=== PATIENT | male | born 1970 | race Caucasian/White ===

== ENCOUNTER 2017-02-19 19:27 | Inpatient (IN) | payer OTHER ==
[~2017-02-19] VITALS: Ht 165.1 cm; Wt 69.2 kg
--- NOTE | ~2017-02-19 | CT16 ---
[facility] A Service of [facility] & [facility] RADIOLOGY TEXT RESULTS PATIENT: RAMÓN SPAIN [facility] 574-01 : [birth year] UNIT #: [id number] AGE: [address]: ALEX LENNON V SEX: M ORDER DR: [id number] [facility] [address] [place], [place] [address] [id number] I MR#: [id number] Acc #: [id number] NAME: RAMÓN SPAIN. : 1970 SEX: M STUDY DATE/TIME: 02/19/2017 21:53 [facility]IT[facility] ROOM: [facility] STUDY DESCRIPTION: CT Angio Chest for PE Attending Physician: Alex Lennon M.D. Ordering Physician: Dominic Fox M.D. Primary Care Physician: Primary Care Physician No MEDICAL IMAGING REPORT This report is preliminary unless electronic signature is present EXAM Chest CT with contrast with CT angiography HISTORY Chest pain and shortness breath for the past 4 days. Pain is toward the right. TECHNIQUE Axial images were obtained through chest with contrast. 100 mL of Isovue was used. CT angiography was performed with thick sliding MIPs in the sagittal and coronal projections. This CT exam was performed with one or more of the following radiation dose reduction techniques: automatic control, adjustment of mA and/or kV according to patient size, and iterative reconstruction. FINDINGS Chest images at mediastinal window show no pulmonary artery filling defects. There is no evidence of mediastinal or hilar adenopathy and there is no evidence of pleural or pericardial fluid. The CT angiographic images also show no evidence of emboli. Lung window imaging shows a ground-glass peripheral density in the left mid lung field laterally. It is unchanged from the previous examination. Malignancy is not excluded. It could also represent chronic scarring or an active process such as a small pneumonia. There is a larger wedge-shaped area of dense consolidation in the right lower lobe posteriorly. This infiltrate is new since the previous scan several days ago. It most likely represents pneumonia. Given its peripheral wedge-shaped it could potentially represent an area of pulmonary infarction but there are no clots seen in the pulmonary arteries to this area. There is mild patchy infiltrate at both lung bases that likely represents atelectasis secondary to splinting. [facility] A Service of [facility] & [facility] RADIOLOGY TEXT RESULTS PATIENT: RAMÓN SPAIN [facility] 574-01 : [birth year] UNIT #: [id number] AGE: [address]: ALEX LENNON V SEX: M ORDER DR: IMPRESSION 1. No evidence of pulmonary embolism. 2. There is a new right lower lobe infiltrate posterolaterally. It most likely represents pneumonia. It is wedge shaped and peripheral and could potentially represent a pulmonary infarct but the area was completely clear several days ago and there are no blood clots in the pulmonary arteries to this area. 3. There is also a ground-glass rounded focus in the left upper lobe laterally in the mid lung field that is unchanged from the previous examination. It is nonspecific and could reflect either an infectious process or even a malignant process. This should be followed subsequently to make sure it is not slowly enlarging over time. Dictated by... Tod Knight M.D. THIS IS AN ELECTRONICALLY VERIFIED REPORT Tod Knight M.D. at 02/22/2017 7:14 AM BRIAN/pam TD: 02/21/2017 00:58 JOB #: [id number] MEDICAL IMAGING REPORT Page 1 of 1 COPY
--- NOTE | ~2017-02-19 | CO ---
Unit #: [id number] #: [id number] Patient: RAMÓN SPAIN [id number] [address] [place], [place] [address] [id number] I MR#: [id number] NAME: RAMÓN SPAIN. ROOM: 574 Age: 46 Sex: M Admission Date: 02/19/2017 : 1970 Attending Physician: Ben Sims M.D. Primary Care Physician: No Primary Care Physician CONSULTATION REPORT REASON FOR CONSULTATION Pulmonary infiltrate. CHIEF COMPLAINT Cough, shortness of breath. 46-year-old male with past medical history of IV heroin abuse. Patient currently uses IV heroin regularly. Last use was on Wednesday. History of polysubstance, methamphetamine and tobacco use. Smoked half to one pack per day. Presents with a complaint of shortness of breath. On CT chest, was found to have an infiltrate and no pulmonary embolism. I am seeing him at the bedside. Denies any headache, blurry vision. No chest pain. REVIEW OF SYSTEMS Positive for pallor. No edema, no cyanosis, no jaundice. PAST MEDICAL HISTORY As described above. SURGICAL HISTORY 1. Shoulder surgery. 2. Right hand surgery. SOCIAL HISTORY Smokes one pack per day. Uses IV heroin on a daily basis and methamphetamine. 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 PHYSICAL EXAMINATION VITAL SIGNS: Temperature 98, pulse 87, respirations 12, blood pressure 130/70. NEUROLOGICAL: Awake, alert, oriented. No neuro deficit. HEENT: PERRLA. NECK: Supple. No JVD. CHEST: Bilateral air entry, bilateral mild rhonchi. GI: Nontender, soft. Bowel sounds positive. EXTREMITIES: No edema. SKIN: No rashes, no ulcers. LYMPHATIC: No lymphadenopathy. DIAGNOSTIC STUDIES Labs and imaging has been reviewed. ASSESSMENT AND PLAN 1. Pulmonary infiltrate, most likely peptic emboli and infarct. Unit #: [id number] #: [id number] Patient: RAMÓN SPAIN 2. IV drug use. 3. Gram-positive bacteremia. Rule out endocarditis. 4. Very likely underlying COPD. 5. IV antibiotics per infectious disease. 6. Transthoracic echo showed thickening of anterior tricuspid leaflet representing vegetation. GIFTY is recommended. Continue antibiotics per infectious disease, bronchodilator, oxygen. 7. Substance abuse. Counseling has been done. Patient will be followed. Please see orders for detailed plan. Dictated by... Ben Cormier/teresa TD: 02/22/2017 06:01 JOB #: [id number] CONSULTATION REPORT Page 1 of 1 X Jeannine Pierce MD X CONSULTATION REPORT
--- NOTE | ~2017-02-19 | EKG ---
PATIENT: RAMÓN SPAIN UNIT #: [id number] Ventricular Rate: 78 BPM Atrial Rate: 78 BPM P-R Interval: 128 ms QRS Duration: 94 ms Q-T Interval: 380 ms QTC Calculation(Bezet): 433 ms P [place]: 21 degrees Calculated R [place]: 49 degrees Calculated T [place]: 51 degrees Diagnosis Line: Normal sinus rhythm Diagnosis Line: Normal ECG Diagnosis Line: When compared with ECG of 19-FEB-2017 19:32, Diagnosis Line: (unconfirmed) Diagnosis Line: Vent. rate has decreased BY 38 BPM Diagnosis Line: Confirmed by SINDY GONZALEZ MD ([id number]) on 02/22/2017 Diagnosis Line: 7:55:22 PM INTERPRETING MD: LISA SAHNI
--- NOTE | ~2017-02-19 | DS ---
Unit #: [id number] #: [id number] Patient: RAMÓN SPAIN [id number] [address] [place], [place] [address] [id number] I MR#: [id number] NAME: RAMÓN SPAIN ROOM: 574 Age: 46 Sex: M Admission Date: 02/19/2017 : 1970 Discharge Date: 02/22/2017 Attending Physician: Ben Sims M.D. Primary Care Physician: No Primary Care Physician DISCHARGE SUMMARY DATE OF DISCHARGE Actually patient left against medical advice on 02/22/2017. DISCHARGE DIAGNOSES 1. Pneumonia with right lower lobe infiltrate. 2. Gram-positive bacteremia with methicillin-resistant Staphylococcus aureus. 3. Intravenous heroin abuse. 4. Polysubstance abuse. 5. Ill-defined nodular opacity in left upper lobe. HOSPITAL COURSE The patient is a 46-year-old man with a past medical history significant for IV heroin abuse and polysubstance abuse. The patient initially arrived to the emergency room on February 17, 2017 and was diagnosed with sepsis and pneumonia. The patient was advised to be admitted. The patient refused admission and left against medical advice. The patient returned to the emergency room on 02/19/2017 with continued and worsening symptoms of shortness of breath and cough. He was found to have a lactic acid of 2.3. He underwent a CT scan which showed no pulmonary embolism but did show a right lower lobe infiltrate and a ground-glass opacity in the left upper lobe and the patient's blood cultures from February 17 grew methicillin-resistant Staph aureus. The patient was admitted and started on IV vancomycin and IV Zosyn. During his admission infectious disease consultation was obtained and it was recommended to continue IV vancomycin. The Zosyn was discontinued. Pulmonary consultation was also obtained and recommended continued IV antibiotic. The patient had a transthoracic echocardiogram that demonstrated thickening of the anterior tricuspid leaflet representing a vegetation. A transesophageal echocardiogram was recommended. A psychiatry consultation was also obtained for his substance abuse. The patient had reported using IV heroin and methamphetamine. The patient was started on opioid withdrawal medications and the patient left against medical advice on 02/22 early in the morning. The opioid withdrawal medication which include Neurontin 300 mg three times a day, Vistaril 25 mg three times a day and trazodone 50 mg at bedtime along with Requip 1 mg at bedtime to treat withdrawal symptoms. Dictated by... Ben Sims M.D. Unit #: [id number] #: [id number] Patient: GRABIELRAMÓNCAMILO CRISOSTOMO/jim TD: 03/03/2017 17:55 JOB #: [id number] DISCHARGE SUMMARY Page 1 of 1 X X DISCHARGE SUMMARY
--- NOTE | ~2017-02-19 | HP ---
Unit #: [id number] #: [id number] Patient: RAMÓN SPAIN [id number] [address] [place], [place] [address] [id number] I MR#: [id number] NAME: RAMÓN SPAIN. ROOM: 574 Age: 46 Sex: M Admission Date: 02/19/2017 : 1970 Attending Physician: Ben Sims M.D. Primary Care Physician: No Primary Care Physician HISTORY AND PHYSICAL CHIEF COMPLAINT Shortness of breath, chest pain, cough. DISCUSSION This is a 46-year-old gentleman with a past medical history of IV heroin use, polysubstance abuse, methamphetamine, tobacco abuse. He presented to the emergency room here on February 17, 2017. At that time, he was diagnosed with sepsis, pneumonia. He was advised admission. He refused. He left against medical advice. He went home. He is coming back today with worsening symptoms, shortness of breath, chest pain with deep breath, dry cough. No history of dry cough. On workup today, he was found to be elevated lactic acid of 2.3. He underwent repeat CT scan, which shows no pulmonary embolism but showed new right lower lobe infiltrate. There is a ground-glass opacity in the left upper lobe and his blood cultures from February 17 growing gram-positive bacteremia clusters in the blood and now he has agreed for admission. He is feeling very bad, tired, fatigued but denies fever. Says he is hurting when he takes a deep breath. Chest pain, shortness of breath, dry cough. PAST MEDICAL HISTORY Denies any medical history in the past. PAST SURGICAL HISTORY 1. History of right shoulder surgery. 2. Right hand surgery. SOCIAL HISTORY He smoked one pack daily. Denies alcohol use. IV heroin on daily basis and methamphetamine. FAMILY HISTORY Mother with coronary artery disease. REVIEW OF SYSTEMS Negative except for history of present illness. PHYSICAL EXAMINATION GENERAL: A 46-year-old gentleman lying in the bed comfortably, currently not in any distress. He is alert, awake, oriented x3. VITAL SIGNS: Current vitals are following: Temperature 98.6, heart rate 180, respiratory rate 16, blood pressure 158/108, oxygen 100% on room air. HEENT: Pupils equally reactive to light and accommodation. Head is normocephalic and atraumatic. NECK: Supple. No JVD. Unit #: [id number] #: [id number] Patient: RAMÓN SPAIN LUNGS: Bilateral rhonchi positive. HEART: S1, S2. Regular rate and rhythm. ABDOMEN: Soft, nontender, nondistended. Bowel sounds positive. EXTREMITIES: Inspection normal. No cyanosis. No clubbing. No edema. NEUROLOGIC: No focal neurologic deficit. SKIN: Warm and dry. DIAGNOSTIC STUDIES LABORATORY: Laboratory workup from today is following: His lactic acid level is 2.3. Troponin less than 0.05. Chemistry: Sodium 134, potassium 3.5, chloride 97, glucose 96, BUN 8, creatinine 0.98. White count 18,000, hemoglobin 12, hematocrit 38, platelets 230,000. Blood cultures from February 19 is growing gram-positive cocci in clusters. IMAGING: He had a CT chest today, shows right lower lobe infiltrate and ground-glass opacity in the left upper lobe. He had a CT abdomen on February 17, which was negative. He had a CT chest without contrast on February 17, which also shows ill-defined subpleural nodular opacity in the left upper lobe and also 7 mm subpleural pulmonary nodule right lateral midlung. ASSESSMENT AND PLAN 1. Pneumonia with right lower lobe infiltrate/sepsis: Start on IV Zosyn and vancomycin. 2. Leukocytosis. 3. Gram-positive bacteremia: Rule out endocarditis. Will get ID (infectious disease) to see and will get also a 2D echocardiogram. 4. Ill-defined nodular opacity in left upper lobe. 5. IV heroin abuse. 6. Polysubstance abuse. 7. Tobacco abuse. 8. Deep venous thrombosis prophylaxis: Will place the patient on Lovenox. 9. Gastrointestinal prophylaxis: Will place the patient on Protonix. Dictated by Ben Humphrey TD: 02/20/2017 09:14 JOB #: [id number] HISTORY AND PHYSICAL Page 1 of 1 X X HISTORY AND PHYSICAL
--- NOTE | ~2017-02-19 | EKG ---
PATIENT: RAMÓN SPAIN UNIT #: [id number] Ventricular Rate: 116 BPM Atrial Rate: 116 BPM P-R Interval: 128 ms QRS Duration: 92 ms Q-T Interval: 368 ms QTC Calculation(Bezet): 511 ms P [place]: 57 degrees Calculated R [place]: 24 degrees Calculated T [place]: 44 degrees Diagnosis Line: Sinus tachycardia Diagnosis Line: Otherwise normal ECG Diagnosis Line: When compared with ECG of 16-FEB-2017 23:43, Diagnosis Line: No significant change was found Diagnosis Line: Confirmed by FERNANDO PEREZ MD ([id number]) on Diagnosis Line: 02/22/2017 4:41:38 PM INTERPRETING MD: LEIDA
--- NOTE | ~2017-02-19 | CO ---
Unit #: [id number] #: [id number] Patient: RAMÓN SPAIN [id number] [address] [address] [id number] I MR#: [id number] NAME: RAMÓN SPAIN. ROOM: 574 Age: 46 Sex: M Admission Date: 02/19/2017 : 1970 Attending Physician: Ben Sims M.D. Primary Care Physician: Charmaine Primary Care Physician Consultation Date: 02/20/2017 CONSULTATION REPORT REASON FOR CONSULTATION Sepsis. HISTORY OF PRESENT ILLNESS This is a 46-year-old gentleman with a history of IV drug use, who was admitted with fever and chills and positive blood cultures for MRSA. Apparently he was in the emergency room without days earlier, but left against medical advice. He came back with worsening symptoms. By that time blood cultures drawn on previous emergency room visit had turned positive for MRSA. He was given vancomycin and Zosyn. Infectious disease was consulted. CT scan showed a possible septic ulnar infarct and endocarditis was suspected. Echocardiogram is pending. Infectious disease was consulted for evaluation. The patient is currently stable other than pain all over the body. He has no other symptoms. He does have fever and leukocytosis as well, but there is no hypotension. PAST MEDICAL HISTORY Generally negative for any sort of medical problem. He does use IV drugs with methamphetamine and Valium. He does not take any prescription medications at home. PAST SURGICAL HISTORY 1. Right hand surgery. 2. Right shoulder surgery. Details are not clear. SOCIAL HISTORY He is an IV drug user. Denies any alcohol. Does smoke cigarettes on a daily basis as well. FAMILY HISTORY Coronary artery disease. ALLERGIES No known drug allergies. CURRENT MEDICATIONS 1. Vancomycin. 2. Zosyn. 3. Albuterol. 4. Potassium supplement. 5. Etodolac. REVIEW OF SYSTEMS Fever, chills, chest pain and cough. Aches and pains all over. He has no Unit #: [id number] #: [id number] Patient: RAMÓN SPAIN abdominal pain or dysuria, hemoptysis, headache, mental status changes. PHYSICAL EXAMINATION GENERAL: Young white male with multiple tattoos. He is awake and alert, but complains of pain all over the body. VITALS: Temperature 100.9, t-max was the same yesterday, heart rate 100, respiratory rate 14, blood pressure 130/70, no hypotension was documented. NECK: Supple. There is no rash or jugular venous distension. LUNGS: Clear to percussion and auscultation. HEART: Normal. There is a faint ejection systolic murmur. ABDOMEN: Soft and nontender. There is no rebound or guarding. Bowel sounds normal. NEUROLOGIC: Nonfocal. DIAGNOSTIC STUDIES IMAGING: CT of the abdomen and pelvis negative. CT chest shows ill-defined subpleural nodular opacity in the lateral left upper lobe in the mid chest measuring up to 1.8 surrounded by hazy ground-glass infiltrate. There is also a 7 mm subpleural pulmonary nodule in the right mid lung laterally and mild centrilobular emphysema. LABORATORY: Blood cultures MRSA on the and . White count 19.4, hematocrit 35.6, platelets 190, neutrophils 79%. Sodium 138, potassium 3.8, chloride 106, CO2 26, BUN 8, creatinine 0.9. Liver function tests are normal. Lactic acid is 1.7. It was 2.3 on admission. Blood cultures MRSA. Urine drug screen is positive for amphetamines and opiates. Urinalysis is negative for urinary tract infection. ASSESSMENT MRSA bacteremia in a patient with intravenous drug use as well as at least two septic pulmonary infarcts with persistent MRSA bacteria, likely endocarditis involving the tricuspid valve or pulmonary valve. PLAN I agree with vancomycin. I will discontinue Zosyn and wait for the echo. Continue vancomycin at this time with discontinuing Zosyn. Further recommendations will follow. Dictated by... Ben Gross TD: 02/22/2017 07:00 JOB #: [id number] Unit #: [id number] #: [id number] Patient: RAMÓN SPAIN CONSULTATION REPORT Page 1 of 1 X Bhanu Rahman MD CONSULTATION REPORT
--- NOTE | ~2017-02-19 | CO ---
Unit #: [id number] #: [id number] Patient: RAMÓN SPAIN [id number] [address] [place], [place] [address] [id number] I MR#: [id number] NAME: RAMÓN SPAIN. ROOM: 574 Age: 46 Sex: M Admission Date: 02/19/2017 : 1970 Attending Physician: Ben Sims M.D. Primary Care Physician: Primary Care Physician No Consultation Date: 02/21/2017 CONSULTATION REPORT REASON FOR CONSULTATION Opiate abuse, withdrawal. HISTORY OF PRESENT ILLNESS Mr. Ram is a 46-year-old white male, seen in room 574, bed 1 on 02/21/2017 at [facility]. The patient reported history of IV drug abuse, drug of choice opiates, having withdrawal symptom. Reported feeling anxious, nervous, restlessness of his legs, anxiety, feeling hot and cold sweats, trouble sleeping, mood lability. The patient reported using IV heroin and methamphetamine. The patient was admitted on 02/19/2017 and reported having a lot of problems with the withdrawal symptoms and medications are not working. The patient currently denied any thoughts of harming self or others or any psychotic symptom. The patient's vital signs; temperature 98.3, pulse rate 77, respiratory rate 18, blood pressure 118/72, and oxygen saturation 99%. The patient dressed in hospital attire, lying comfortably in bed, receiving IV fluids and antibiotic. PAST PSYCHIATRIC HISTORY Remarkable for history of substance abuse, amphetamine, opiates. No history of any suicide attempt or depression. MEDICAL HISTORY History of right shoulder surgery, right hand surgery. MEDICATIONS No home medication, but currently diagnosed with pneumonia and prescribed Protonix, Lovenox, Zosyn. FAMILY HISTORY AND SOCIAL HISTORY The patient reports that he has a good support system. No history of abuse. History of substance abuse as mentioned above. REVIEW OF SYSTEMS Complete review of systems is unremarkable except as mentioned above. MENTAL STATUS EXAMINATION The patient's vital signs; temperature 98.3, pulse rate 77, respiratory rate 18, blood pressure 118/72, and oxygen saturation 99%. General appearance; the patient dressed in hospital attire, lying comfortably in bed. Attention span and concentration, fair. Speech, regular rate and coherent. Oriented in time, place, and person. Mood and affect; sad, dysphoric, and anxious. Thought process, coherent. Thought content, the patient denied any thoughts of harming self or others or any Unit #: [id number] #: [id number] Patient: RAMÓN SPAIN hallucination. Recent and remote memory, fair. Language, intact. Fund of knowledge, fair. Insight and judgment, fair to slightly impaired. DIAGNOSES Psychiatric: Opioid use disorder, severe, F11.20; history of amphetamine use disorder, severe, F15.20; mood disorder, not otherwise specified, F32.9. Secondary diagnosis: Deferred. Medical diagnosis: Please refer to H and P. Stressors: Psychosocial stressor. ASSESSMENT/PLAN 1. Supportive psychotherapy and psychoeducation provided to the patient. 2. Educated about benefits and side effects of medication and course and prognosis of illness. 3. Recommending to add Neurontin 300 mg t.i.d., Vistaril 25 mg t.i.d., trazodone 50 mg at bedtime, Requip 1 mg at bedtime to treat withdrawal symptoms. We will continue to follow. If needed, consider further adjustment of medication. Please feel free to call if any questions, telephone #[phone]. Dictated by... Ben Garcia/giuliana TD: 02/22/2017 09:43 JOB #: [id number] CONSULTATION REPORT Page 1 of 1 X Sterling Guillaume MD X CONSULTATION REPORT
[~2017-02-19 19:27] MED LIST: ALBUTEROL17 GM INH; ATENOLOL; DOXYCYCLINE HY100 M1 PO; FLEXERIL10 MG PO; LORTAB 10-5001 EACH PO; METHADONE PO; ORUDIS75 M1 PO; TESSALON200 MG PO; VICODIN PO
[2017-02-19 20:31] LABS: BASOPHIL% 0.2 % (0-2.5); EOSINOPHIL# 0.1 X10e3 (0-0.7); EOSINOPHIL% 0.3 % (0.0-7.0); HEMATOCRIT 38.2 % (38.0-50.0); HEMOGLOBIN 12.9 gm/dL (13.0-16.0); LYMPHOCYTE% 5.6 % (17.0-45.0); MEAN CELL VOLUME 87.6 FL (83-96); MEAN CORPUSCULAR HEMOGLOBIN 29.6 PG (28-34); MEAN CORPUSCULAR HGB CONC 33.8 g/dL (30-36); MEAN PLATELET VOLUME 7.1 FL (6.5-11.5); MONOCYTE# 1.7 X10e3 (0-1.0); MONOCYTE% 8.9 % (3.0-12.0); PLATELET COUNT 230 X10e3 (140-420); RED BLOOD COUNT 4.36 X10e (3.90-5.60); RED CELL DISTRIBUTION WIDTH 13.5 % (11.0-15.5); WHITE BLOOD COUNT 18.8 X10e3 (4.0-10.5)
[2017-02-19 20:32] LABS: DIFF IND YES
[2017-02-19 20:51] LABS: PLATELET ESTIMATE NORMAL (NORMAL)
[2017-02-19 20:58] LABS: BUN/CREATININE RATIO 8.88; CALCIUM SERUM 8.5 mg/dL (8.4-10.2); CREATININE SERUM 0.9 mg/dL (0.6-1.4); GLOM FILT RATE Estimated 100.6 mL/min (>60); POTASSIUM 3.5 mmol/L (3.5-5.1)
[2017-02-19 21:39] LABS: POC - CKMB <1.0 ng/mL (0.0-7.9); POC - TROPONIN <0.05 ng/mL (<=0.05)
[2017-02-20 06:35] LABS: ALBUMIN SERUM 2.7 g/dL (3.5-5.0); BILIRUBIN,TOTAL 0.4 mg/dL (0.2-2.0); BUN/CREATININE RATIO 8.88; CREATININE SERUM 0.9 mg/dL (0.6-1.4); GLOM FILT RATE Estimated 100.6 mL/min (>60); POTASSIUM 3.8 mmol/L (3.5-5.1)
[2017-02-20 06:46] LABS: BASOPHIL# 0.1 X10e3 (0-0.3); BASOPHIL% 0.4 % (0-2.5); EOSINOPHIL% 0.1 % (0.0-7.0); HEMATOCRIT 35.6 % (38.0-50.0); HEMOGLOBIN 12.1 gm/dL (13.0-16.0); LYMPHOCYTE# 1.6 X10e3 (1.0-3.5); LYMPHOCYTE% 8.1 % (17.0-45.0); MEAN CELL VOLUME 87.9 FL (83-96); MEAN CORPUSCULAR HGB CONC 34.2 g/dL (30-36); MEAN PLATELET VOLUME 7.5 FL (6.5-11.5); MONOCYTE# 2.2 X10e3 (0-1.0); MONOCYTE% 11.5 % (3.0-12.0); NEUTROPHIL# 15.5 X10e3 (1.5-7.1); NEUTROPHIL% 79.9 % (40-75); PLATELET COUNT 190 X10e3 (140-420); RED BLOOD COUNT 4.04 X10e (3.90-5.60); RED CELL DISTRIBUTION WIDTH 13.7 % (11.0-15.5); WHITE BLOOD COUNT 19.4 X10e3 (4.0-10.5)
[2017-02-20 07:24] LABS: DIFF IND YES
[2017-02-20 09:43] LABS: PLATELET ESTIMATE NORMAL (NORMAL); RBC NORMAL YES; SMUDGE CELLS 15 /100
== END 2017-02-22 07:29 | disposition left against medical advice (07) | DRG 871 ==
LOC: CED 19:27 → CEDOF 23:08 → C5C 23:43
PROVIDERS: Emergency Medicine
PROC: B32TYZZ Computerized Tomography (CT Scan) of Left Pulmonary Artery using Other Contrast (ICD-10-PCS; 2017-02-19)
PROC: B32SYZZ Computerized Tomography (CT Scan) of Right Pulmonary Artery using Other Contrast (ICD-10-PCS; 2017-02-19)
PROC: B24BZZZ Ultrasonography of Heart with Aorta (ICD-10-PCS; principal; 2017-02-20)
DX: A41.9 Sepsis, unspecified organism (principal); J18.9 Pneumonia, unspecified organism; I76 Septic arterial embolism; F11.20 Opioid dependence, uncomplicated; J44.0 Chronic obstructive pulmonary disease with (acute) lower respiratory infection; F39 Unspecified mood [affective] disorder; F17.200 Nicotine dependence, unspecified, uncomplicated; Z82.49 Family history of ischemic heart disease and other diseases of the circulatory system
CPT/HCPCS: 36415; 71010; 71250; 71275; 74176; 80048; 80053; 80076; 80307; 81003; 82553; 83605; 83690; 83735; 84484; 85025; 85610; 85730; 87040; 87077; 87186; 93005; 93306; 94640; 94760; 96361; 96365; 96366; 96367; 96375; 99284; 99285; G0480; J1170; J1650; J1885; J2405; J2543; J3260; J3370; Q9967